=== PATIENT | female | born 1995 | race Caucasian/White ===

== ENCOUNTER 2017-02-23 22:13 | Emergency (ER) | payer BC, OTHER ==
[~2017-02-23 22:13] MED LIST: CEPH-264 PO; HYDR-971 PO; IBUP800T19 PO; PRED50TA PO
--- NOTE | 2017-02-23 22:19 | ED.ADGEN ---
Past History Past Medical History: No Pertinent History Past Surgical History: Smoking: Non-smoker Alcohol Use: None Drug Use: None Adult General Chief Complaint Chief Complaint ".. I had a little episode of coughing really hard... and got this sql server bi developer sharp pain... in Rt. side mid back.. and it still hurt if cough, laugh, or move funny...it been there all day.." HPI HPI Patient is a 22 year old female who presents with above hx and complaints. Pt. has point tenderness mid scapular line T-6. Pain is reproduced on palpation at this point, on anterior to posterior compress and side to side compress of ribs. Pt. denies hx of cardiac, PE, or coagulopathy. Pt. states she normally healthy. No other trauma reported other than the cough. Review of Systems Review of Systems Constitutional: Denies fever or chills [] Eyes: Denies change in visual acuity, redness, or eye pain [] HENT: Denies nasal congestion or sore throat [] Respiratory: Denies cough or shortness of breath [] Cardiovascular: No additional information not addressed in HPI [] Point tenderness of chest wall as per HPI. GI: Denies abdominal pain, nausea, vomiting, bloody stools or diarrhea [] : Denies dysuria or hematuria [] Musculoskeletal: Denies back pain or joint pain []No cording in legs Integument: Denies rash or skin lesions [] Neurologic: Denies headache, focal weakness or sensory changes [] Endocrine: Denies polyuria or polydipsia [] Family History Family History Noncontributory Current Medications Current Medications Current Medications Medications (Trade) Dose Ordered Sig/Uriel Start Time Stop Time Status Last Admin Dose Admin Ketorolac Tromethamine (Toradol) 60 mg 1X ONCE 02/23/17 22:45 02/23/17 22:46 DC 02/23/17 22:45 60 MG See nursing for home meds Allergies Allergies Allergies Coded Allergies Type Severity Reaction Last Updated Verified No Known Drug Allergies 01/31/14 No Physical Exam Physical Exam Constitutional: Well developed, well nourished, no acute distress, non-toxic appearance. [] HENT: Normocephalic, atraumatic, bilateral external ears normal, oropharynx moist, no oral exudates, nose normal. [] Eyes: PERRLA, EOMI, conjunctiva normal, no discharge. [] Neck: Normal range of motion, no tenderness, supple, no stridor. [] Cardiovascular:Heart rate regular rhythm, no murmur [] Lungs & Thorax: Bilateral breath sounds clear to auscultation []except chest wall tenderness as per history of present illness Abdomen: Bowel sounds normal, soft, no tenderness, no masses, no pulsatile masses. [Old surgery scar Skin: Warm, dry, no erythema, no rash. [] Back: No tenderness, no CVA tenderness. [] Extremities: No tenderness, no cyanosis, no clubbing, ROM intact, no edema. [] No cording noted. Scar Rt. arm Neurologic: Alert and oriented X 3, normal motor function, normal sensory function, no focal deficits noted. [] Psychologic: Affect normal, judgement normal, mood normal. [] Current Patient Data Lab Results Laboratory Tests Test 02/23/17 22:58 POC Urine HCG, Qualitative hcg negative (Negative) EKG EKG [] Radiology/Procedures Radiology/Procedures I interpretation chest x-ray shows no acute cardiopulmonary findings. No findings of pneumothorax.[] Course & Med Decision Making Course & Med Decision Making Pertinent Labs and Imaging studies reviewed. (See chart for details). Take Tylenol and ibuprofen as needed for discomfort. Follow-up primary care. Return if any concerns. [] Final Impression Final Impression 1. Cartilage Tear 2. Chest Wall Pain[] Problems: Dragon Disclaimer Dragon Disclaimer This electronic medical record was generated, in whole or in part, using a voice recognition dictation system. DARRICK MCGEE MD Feb 23, 2017 22:19
[2017-02-23 22:25] VITALS: BP 143/89
[2017-02-23] MEDS ORDERED: KETOROLAC 60 MG/2 ML VIAL. IM ONE (22:45)
--- NOTE | 2017-02-24 07:50 | RAD ---
Chest, 2 views, 02/23/2017: History: Cough, congestion, chest pain The heart size and pulmonary vascularity are normal. No pulmonary infiltrates are seen. There is no evidence of pleural fluid. There is mild gaseous distention of bowel loops in the upper abdomen. IMPRESSION: 1. No acute cardiopulmonary abnormality is detected. 2. Gaseous distention of bowel loops in the upper abdomen. If pain persists, a follow-up acute abdomen series may be useful for further evaluation.
== END 2017-02-23 23:32 | disposition home or self-care (01) ==
LOC: ER 22:13
DX: S43.81XA Sprain of other specified parts of right shoulder girdle, initial encounter (principal); R07.89 Other chest pain; X58.XXXA Exposure to other specified factors, initial encounter; Y93.89 Activity, other specified; Y99.8 Other external cause status; Y92.89 Other specified places as the place of occurrence of the external cause
CPT/HCPCS: 71020; 81025; 96372; 99284; J1885

== ENCOUNTER 2018-06-05 18:15 | Emergency (ER) | payer SELFPAY ==
[~2018-06-05] VITALS: Ht 157.5 cm; Wt 100.5 kg
[~2018-06-05 18:15] MED LIST changes: +HYDR-3165 PO; -HYDR-971 PO
[2018-06-05 18:17] VITALS: BP 121/83
[2018-06-05] MEDS ORDERED: AMOX1TAB61 PO (18:41)
--- NOTE | 2018-06-05 18:44 | PHYS DOC ---
Adult General Chief Complaint Chief Complaint sore throat HPI HPI 23 years old female presented emergency department with sore throat, dry cough for 72 hours no fever no chills no urgency no frequency no hematuria no abdominal pain Review of Systems Review of Systems Constitutional: Denies fever or chills [] Eyes: Denies change in visual acuity, redness, or eye pain [] HENT: Denies nasal congestion Respiratory: Denies cough or shortness of breath [] Cardiovascular: No additional information not addressed in HPI [] GI: Denies abdominal pain, nausea, vomiting, bloody stools or diarrhea [] : Denies dysuria or hematuria [] Musculoskeletal: Denies back pain or joint pain [] Integument: Denies rash or skin lesions [] Neurologic: Denies headache, focal weakness or sensory changes [] Endocrine: Denies polyuria or polydipsia [] All other systems were reviewed and found to be within normal limits, except as documented in this note. Allergies Allergies Allergies Coded Allergies Type Severity Reaction Last Updated Verified sulfamethoxazole Allergy Unknown hives 06/05/18 Yes trimethoprim Allergy Unknown hives 06/05/18 Yes Physical Exam Physical Exam Constitutional: Well developed, well nourished, no acute distress, non-toxic appearance. [] HENT: Normocephalic, atraumatic, bilateral external ears normal, oropharynx red , no oral exudates, nose normal. [] Eyes: PERRLA, EOMI, conjunctiva normal, no discharge. [] Neck: Normal range of motion, no tenderness, supple, no stridor. [] Cardiovascular:Heart rate regular rhythm, no murmur [] Lungs & Thorax: Bilateral breath sounds clear to auscultation [] Abdomen: Bowel sounds normal, soft, no tenderness, no masses, no pulsatile masses. [] Skin: Warm, dry, no erythema, no rash. [] Back: No tenderness, no CVA tenderness. [] Extremities: No tenderness, no cyanosis, no clubbing, ROM intact, no edema. [] Neurologic: Alert and oriented X 3, normal motor function, normal sensory function, no focal deficits noted. [] Psychologic: Affect normal, judgement normal, mood normal. [] Current Patient Data Vital Signs Vital Signs Date Time Temp Pulse Resp B/P (MAP) Pulse Ox O2 Delivery O2 Flow Rate FiO2 06/05/18 18:17 98.5 83 16 98 Room Air EKG EKG [] Radiology/Procedures Radiology/Procedures [] Course & Med Decision Making Course & Med Decision Making Pertinent Labs and Imaging studies reviewed. (See chart for details) [] Final Impression Final Impression [] Problems: (1) Pharyngitis Qualifiers: Qualified Codes: J02.0 - Streptococcal pharyngitis Dragon Disclaimer Dragon Disclaimer This electronic medical record was generated, in whole or in part, using a voice recognition dictation system. ISH CASTRO MD Jun 05, 2018 18:44
== END 2018-06-05 18:50 | disposition home or self-care (01) ==
LOC: ER 18:15
DX: J02.0 Streptococcal pharyngitis (principal); B95.0 Streptococcus, group A, as the cause of diseases classified elsewhere; Z88.2 Allergy status to sulfonamides; Z88.1 Allergy status to other antibiotic agents
CPT/HCPCS: 99283

== ENCOUNTER 2019-01-03 11:34 | Emergency (ER) | payer BC ==
[~2019-01-03] VITALS: Ht 157.5 cm; Wt 104.3 kg
[~2019-01-03 11:34] MED LIST changes: +AMOX1TAB61 PO
[2019-01-03 11:40] VITALS: BP 131/94
--- NOTE | 2019-01-03 12:06 | RAD ---
Indication:Right ankle pain for 3 weeks. No known injury TECHNIQUE: 3 views of the right ankle COMPARISON:None FINDINGS/ impression: No acute fracture or dislocation. Ankle mortise is intact. Electronically signed by: Nael Steward DO (01/03/2019 12:03 PM) [facility]
[2019-01-03] MEDS ORDERED: OXAP600T2 PO (12:21)
--- NOTE | 2019-01-03 12:21 | PHYS DOC ---
Past History Past Medical History: Depression Past Surgical History: Smoking: Non-smoker Alcohol Use: Occasionally Drug Use: None Adult General Chief Complaint Chief Complaint: ANKLE PROBLEM HPI HPI Patient is a 23-year-old female presents complaining of right ankle pain, the lower outer part of her ankle. Increased pain with movement. This started approximately 3 weeks ago. No trauma, no swelling, no recent travel. No short ness of breath. No PE risk factors. 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 Patient reports ibuprofen does little to help with the pain.[] Review of Systems Review of Systems Constitutional: Denies fever or chills [] Eyes: Denies change in visual acuity, redness, or eye pain [] HENT: Denies nasal congestion or sore throat [] Respiratory: Denies cough or shortness of breath [] Cardiovascular: No chest pain or palpitations[] GI: Denies abdominal pain, nausea, vomiting, bloody stools or diarrhea [] : Denies dysuria or hematuria [] Musculoskeletal: Denies back pain, see history of present illness[] Integument: Denies rash or skin lesions [] Neurologic: Denies headache, focal weakness or sensory changes [] Endocrine: Denies polyuria or polydipsia [] All other systems were reviewed and found to be within normal limits, except as documented in this note. Allergies Allergies Allergies Coded Allergies Type Severity Reaction Last Updated Verified sulfamethoxazole Allergy Unknown hives 06/05/18 Yes trimethoprim Allergy Unknown hives 06/05/18 Yes Physical Exam Physical Exam Constitutional: Well developed, well nourished, no acute distress, non-toxic appearance. [] HENT: Normocephalic, atraumatic, bilateral external ears normal, oropharynx moist, no oral exudates, nose normal. [] Eyes: PERRLA, EOMI, conjunctiva normal, no discharge. [] Neck: Normal range of motion, no tenderness, supple, no stridor. [] Cardiovascular:Heart rate regular rhythm, no murmur [] Lungs & Thorax: Bilateral breath sounds clear to auscultation [] Abdomen: Not examined[] Skin: Warm, dry, no erythema, no rash. [] Back: No tenderness, no CVA tenderness. [] Extremities: Right ankle has tenderness over the lateral malleolus along with tenderness of along the anterior toe a fibular ligament. There is no laxity. No base of the fifth metatarsal tenderness. Patient is distally neurovascularly intact. Full active range of motion. A joint above and joined below the ankle were evaluated and were normal. The other 3 extremities show: No tenderness, no cyanosis, no clubbing, ROM intact, no edema. [] Neurologic: Alert and oriented X 3, normal motor function, normal sensory function, no focal deficits noted. [] Psychologic: Affect normal, judgement normal, mood normal. [] Current Patient Data Vital Signs Vital Signs Date Time Temp Pulse Resp B/P (MAP) Pulse Ox O2 Delivery O2 Flow Rate FiO2 01/03/19 11:40 98.2 87 20 96 Room Air EKG EKG [] Radiology/Procedures Radiology/Procedures PROCEDURE: ANKLE RIGHT 3V Indication:Right ankle pain for 3 weeks. No known injury TECHNIQUE: 3 views of the right ankle COMPARISON:None FINDINGS/ impression: No acute fracture or dislocation. Ankle mortise is intact. [] Course & Med Decision Making Course & Med Decision Making Pertinent Labs and Imaging studies reviewed. (See chart for details) ED course: Patient arrived, was placed in bed, and tolerated exam well. She was transported to and from radiology with any complications. After the return of the imaging findings, these were discussed with the patient who voiced understanding. An ankle air/stirrup splint was placed. Patient was distally neurovascularly intact after stirrup splint application. All questions were answered. Patient was discharged in improved condition. Medical decision making: There is no evidence of a fracture, dislocation, neurologic, tendonous, ligamentous, nor vascular injury.[] Dragon Disclaimer Dragon Disclaimer This electronic medical record was generated, in whole or in part, using a voice recognition dictation system. Departure Departure: Impression: Primary Impression: Ankle sprain Disposition: HOME, SELF-CARE Condition: IMPROVED Referrals: COOKIE R[facility] (PCP) Follow-up in 2 days Patient Instructions: Ankle Sprain, Acute, with Phase I Rehab-SportsMed Additional Instructions: Follow-up with your regular doctor in 2 days. Wear the splint while awake, and especially during working hours. Return to the ER if worsening pain, weakness, or any other concerns. Scripts Oxaprozin (OXAPROZIN) 600 Mg Tablet 600 MG PO BID for pain, #20 TAB Prov: ZULAY RAMIREZ DO 01/03/19 Problem Qualifiers Primary Impression: Ankle sprain Encounter type: initial encounter Involved ligament of ankle: anterior talofibular ligament Laterality: right Qualified Codes: S93.491A - Sprain of other ligament of right ankle, initial encounter ZULAY RAMIREZ DO Jan 03, 2019 12:21
== END 2019-01-03 12:25 | disposition home or self-care (01) ==
LOC: ER 11:34
DX: S93.401A Sprain of unspecified ligament of right ankle, initial encounter (principal); Z88.1 Allergy status to other antibiotic agents; Z88.2 Allergy status to sulfonamides; X58.XXXA Exposure to other specified factors, initial encounter; Y93.89 Activity, other specified; Y92.89 Other specified places as the place of occurrence of the external cause; Y99.0 Civilian activity done for income or pay
CPT/HCPCS: 29515; 73610; 99284

== ENCOUNTER 2020-04-29 21:20 | Emergency (ER) | payer BC ==
[~2020-04-29] VITALS: Ht 157.5 cm; Wt 108.0 kg
[~2020-04-29 21:20] MED LIST changes: +OXAP600T2 PO
[2020-04-29] MEDS ORDERED: NITROGLYCERIN SUBLINGUAL 0.4 MG BOTTLE OF 25. SL PRN (21:45)
--- NOTE | 2020-04-29 21:46 | EKG ---
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
--- NOTE | 2020-04-29 21:58 | PHYS DOC ---
Past History Past Medical History: Depression (BULMARO JENSEN APRN) Past Surgical History: (BULMARO JENSEN APRN) Smoking: Non-smoker Alcohol Use: Occasionally Drug Use: None (BULMARO JENSEN APRN) Adult General Chief Complaint Chief Complaint: CHEST PAIN HPI HPI Patient is a 25-year-old female patient with history of depression presenting to the ED today complaining of 6 out of 10 substernal chest pain that began 3 days ago. Patient describes the pain as sharp worse on eating. Denies any cough, congestion, shortness of breath. Denies any chance she is , she states she has a Mirena. Denies any abdominal pain, nausea vomiting. She states she has tried Tums with no relief. (BULMARO JENSEN APRN) Review of Systems Review of Systems Constitutional: Denies fever or chills [] Eyes: Denies change in visual acuity, redness, or eye pain [] HENT: Denies nasal congestion or sore throat [] Respiratory: Denies cough or shortness of breath [] Cardiovascular: Reports chest pain GI: Denies abdominal pain, nausea, vomiting, bloody stools or diarrhea [] : Denies dysuria or hematuria [] Musculoskeletal: Denies back pain or joint pain [] Integument: Denies rash or skin lesions [] Neurologic: Denies headache, focal weakness or sensory changes [] All other systems were reviewed and found to be within normal limits, except as documented in this note. (BULMARO JENSEN APRN) Current Medications Current Medications Current Medications Medications (Trade) Dose Ordered Sig/Uriel Start Time Stop Time Status Last Admin Dose Admin Aspirin (Cal Aspirin) 325 mg 1X ONCE 04/29/20 22:15 04/29/20 22:16 04/29/20 21:51 325 MG Multi-Ingredient Mouthwash/Gargle (Gi Cocktail) 20 ml 1X ONCE 04/29/20 22:15 04/29/20 22:16 04/29/20 21:51 20 ML Nitroglycerin (Nitrostat) 0.4 mg PRN Q5MIN PRN 04/29/20 21:45 04/30/20 21:44 04/29/20 21:51 0.4 MG (BULMARO JENSEN APRN) Allergies Allergies Allergies Coded Allergies Type Severity Reaction Last Updated Verified sulfamethoxazole Allergy Unknown hives 06/05/18 Yes trimethoprim Allergy Unknown hives 06/05/18 Yes (BULMARO JENSEN APRN) Physical Exam Physical Exam Constitutional: Well developed, well nourished, no acute distress, non-toxic appearance. [] HENT: Normocephalic, atraumatic, bilateral external ears normal, oropharynx moist, no oral exudates, nose normal. [] Eyes: PERRLA, EOMI, conjunctiva normal, no discharge. [] Neck: Normal range of motion, no tenderness, supple, no stridor. [] Cardiovascular:Heart rate regular rhythm, no murmur [] Lungs & Thorax: Bilateral breath sounds clear to auscultation [] Abdomen: Bowel sounds normal, soft, no tenderness, no masses, no pulsatile masses. [] Skin: Warm, dry, no erythema, no rash. [] Back: No tenderness, no CVA tenderness. [] Extremities: No tenderness, no cyanosis, no clubbing, ROM intact, no edema. [] Neurologic: Alert and oriented X 3, normal motor function, normal sensory function, no focal deficits noted. [] Psychologic: Affect normal, judgement normal, mood normal. [] (BULMARO JENSEN APRN) Current Patient Data Vital Signs Vital Signs Date Time Temp Pulse Resp B/P (MAP) Pulse Ox O2 Delivery O2 Flow Rate FiO2 04/29/20 21:51 87 178/86 04/29/20 21:29 98.1 15 98 Room Air (BULMARO JENSEN APRN) EKG EKG [address] Sousa sinus rhythm HR 100 no STEMI[] (BULMARO JENSEN APRN) Radiology/Procedures Radiology/Procedures [] (BULMARO JENSEN APRN) Impressions: Exam: Acute abdominal series INDICATION: Chest pain, heartburn TECHNIQUE: Frontal view of the chest with upright and supine views of the abdomen Comparisons: None FINDINGS: The cardiomediastinal silhouette and pulmonary vessels are within normal limits. The lung and pleural spaces are clear. Air and stool are noted throughout the colon to level the rectum nonobstructive bowel gas pattern. No suspicious masses or calcifications. Visualized osseous structures are unremarkable. IMPRESSION: 1. No acute cardiopulmonary process. 2. Nonobstructive bowel gas pattern. Electronically signed by: Evi Calderon MD (04/29/2020 10:27 PM) [facility] DICTATED AND SIGNED BY: EVI CALDERON MD DATE: 04/29/202226 CC: PRICE SOUSA DO; BULMARO JENSEN APRN; [facility] REN ~ (PRICE SOUSA DO) Heart Score HEART Score for Chest Pain: HEART Score for Chest Pain Response (Comments) Value History Slighlty/Non-Suspicious 0 ECG Normal 0 Age < 45 0 Risk Factors No Risk Factors 0 Troponin < Normal Limit 0 Total 0 Risk Factors: Risk Factors: DM, Current or recent (<one month) smoker, HTN, HLP, family history of CAD, obesity. Risk Scores: Risk Factors: DM, Current or recent (<one month) smoker, HTN, HLP, family history of CAD, obesity. (BULMARO JENSEN APRN) Course & Med Decision Making Course & Med Decision Making Pertinent Labs and Imaging studies reviewed. (See chart for details) This is a 25-year-old female patient presenting to the ED today with complaints of chest pain that is worse when she eats, symptoms for 3 days. Patient's work-up is pending including labs and x-rays. [address] Sousa (BULMARO JENSEN APRN) Course & Med Decision Making Patient's labs are unremarkable except for magnesium 1.6. Troponin is negative. Her EKG is negative for acute findings. Chest x-ray is negative for acute findings. D-dimer is negative. This does not appear to be cardiopulmonary in nature. She is stable for discharge at this time. (PRICE SOUSA DO) Dragon Disclaimer Dragon Disclaimer This electronic medical record was generated, in whole or in part, using a voice recognition dictation system. (BULMARO JENSEN APRN) PERC Rule for PE PERC Rule for PE Response (Comments) Value Age > 50: No 0 HR > 100: No 0 Sa02 on room air <95%: No 0 Unilateral leg swelling: No 0 Hemoptysis: No 0 Recent surgery or trauma: No 0 Prior PE or DVT: No 0 Hormone use: Yes 1 Total 1 Attending Co-Sign The patient was seen and interviewed as well as examined at the bedside. The chart was reviewed. The case was discussed. Agree with the plan of care. (PRICE SOUSA DO) Departure Departure: Impression: Primary Impression: Chest pain Disposition: 01 DC HOME SELF CARE/HOMELESS Condition: STABLE Referrals: [facility] (PCP) Patient Instructions: Chest Pain (Nonspecific), [id number] BULMARO JENSEN APRN Apr 29, 2020 21:58 PRICE SOUSA DO Apr 29, 2020 22:38
[2020-04-29] MEDS ORDERED: ASPIRIN 325 MG TABLET PO ONE (22:15)
[2020-04-29] MEDS ORDERED: LIDO:MAALOX 1:1 20 ML SINGLE DOSE. PO ONE (22:15)
--- NOTE | 2020-04-29 22:30 | RAD ---
Exam: Acute abdominal series INDICATION: Chest pain, heartburn TECHNIQUE: Frontal view of the chest with upright and supine views of the abdomen Comparisons: None FINDINGS: The cardiomediastinal silhouette and pulmonary vessels are within normal limits. The lung and pleural spaces are clear. Air and stool are noted throughout the colon to level the rectum nonobstructive bowel gas pattern. No suspicious masses or calcifications. Visualized osseous structures are unremarkable. IMPRESSION: 1. No acute cardiopulmonary process. 2. Nonobstructive bowel gas pattern. Electronically signed by: Evi Diaz MD (04/29/2020 10:27 PM) JAN
[2020-04-29 22:38] LABS: BARBITURATES NEG (NEG); BENZODIAZEPINES NEG (NEG); CANNABINOIDS NEG (NEG); COCAINE NEG (NEG); METHADONE NEG (NEG); OPIATES NEG (NEG); PHENCYCLIDINE NEG (NEG)
[2020-04-29 22:39] LABS: AMPHETAMINE/METHAMPHETAMINE NEG (NEG)
[2020-04-29 22:42] LABS: CALCIUM 8.4 mg/dL (8.5-10.1); CREATININE 0.9 mg/dL (0.6-1.0); GFR 76.3; POTASSIUM 3.6 mmol/L (3.5-5.1)
[2020-04-29 22:58] LABS: ALBUMIN 2.9 g/dL (3.4-5.0); ALBUMIN/GLOBULIN RATIO 0.9 (1.0-1.7); MAGNESIUM 1.6 mg/dL (1.8-2.4); TOTAL BILIRUBIN 0.4 mg/dL (0.2-1.0); TOTAL PROTEIN 6.3 g/dL (6.4-8.2)
[2020-04-29 23:17] LABS: BASO # 0.1 x10^3/uL (0.0-0.2); BASO % 1 % (0-3); EOS # 0.3 x10^3/uL (0.0-0.7); EOS % 3 % (0-3); HEMATOCRIT 46.4 % (36.0-47.0); HEMOGLOBIN 15.4 g/dL (12.0-15.5); LYMPH # 2.9 x10^3/uL (1.0-4.8); LYMPH % 28 % (24-48); MEAN CORPUSCULAR HEMOGLOBIN 28 pg (25-35); MEAN CORPUSCULAR HGB CONC 33 g/dL (31-37); MEAN CORPUSCULAR VOLUME 85 fL (79-100); MONO # 0.8 x10^3/uL (0.0-1.1); MONO % 7 % (0-9); NEUT # 6.6 x10^3uL (1.8-7.7); NEUT % 62 % (31-73); PLATELET COUNT 266 x10^3/uL (140-400); RED BLOOD COUNT 5.45 x10^6/uL (3.50-5.40); RED CELL DISTRIBUTION WIDTH 13.5 % (11.5-14.5); WHITE BLOOD COUNT 10.7 x10^3/uL (4.0-11.0)
[2020-04-29 23:29] LABS: BACTERIA,URINE FEW /HPF (0-FEW); BILIRUBIN,URINE NEG (NEG); CLARITY,URINE HAZY; COLOR,URINE YELLOW; GLUCOSE,URINE NEG (NEG); NITRITE,URINE NEG (NEG); RBC,URINE 0 /HPF (0-2); SQUAMOUS EPITHELIAL CELL,UR MOD /LPF; UROBILINOGEN,URINE 0.2 mg/dL (0.2 mg/dL); WBC,URINE 0 /HPF (0-4)
[2020-04-30] MEDS ORDERED: FAMOTIDINE 20 MG/2 ML VIAL IVP ONE (00:15)
[2020-04-30] MEDS ORDERED: PANTOPRAZOLE IV 40 MG VIAL. IVP ONE (00:15)
[2020-04-30 00:40] VITALS: BP 128/88
== END 2020-04-30 00:40 | disposition home or self-care (01) ==
LOC: ER 21:20
DX: R07.2 Precordial pain (principal); F32.9 Major depressive disorder, single episode, unspecified; Z88.2 Allergy status to sulfonamides; Z88.1 Allergy status to other antibiotic agents
CPT/HCPCS: 36415; 74022; 80053; 80307; 81001; 82553; 83690; 83735; 83880; 84443; 84484; 85025; 85379; 93005; 96374; 96375; 99285-25

== ENCOUNTER 2021-08-31 08:25 | Emergency (ER) | payer BC ==
[~2021-08-31] VITALS: Ht 154.9 cm; Wt 100.0 kg
--- NOTE | 2021-08-31 08:34 | PHYS DOC ---
Past History Past Medical History: Depression Past Surgical History: Smoking: Non-smoker Alcohol Use: Occasionally Drug Use: None General Adult HPI: HPI: Patient is a 26 year old female who is who states she is possibly 5 weeks with unknown LMP presents with the chief complaint of vaginal bleeding. Patient had Mirana removed on Jul 18. Jul 23 patient took home test due to symptoms consistent with previous and tested positive x 2 home tests. Patient states 3 days ago had small amount of dark vaginal bleeding. The following day patient had bright vaginal bleeding. Patient called OB and was advised to follow up if she starts to fill a pad with blood. This AM patient awoke with increased blood in pad. Just prior to my exam patient attempted to urinate and had some bright red blood but not passing clots. Patient without pelvic pain and no complaint of dizziness or feeling light headed. Patients vital signs stable. Review of Systems: Review of Systems: Constitutional: Denies fever or chills Eyes: Denies change in visual acuity HENT: Denies nasal congestion or sore throat Respiratory: Denies cough or shortness of breath Cardiovascular: Denies chest pain or edema GI: Denies abdominal pain, nausea, vomiting, bloody stools or diarrhea : Denies dysuria positive positive vaginal bleeding Musculoskeletal: Denies back pain or joint pain Integument: Denies rash Neurologic: Denies headache, focal weakness or sensory changes Endocrine: Denies polyuria or polydipsia Lymphatic: Denies swollen glands Psychiatric: Denies depression or anxiety Allergies: Allergies: Allergies Coded Allergies Type Severity Reaction Last Updated Verified sulfamethoxazole Allergy Unknown hives 06/05/18 Yes trimethoprim Allergy Unknown hives 06/05/18 Yes Physical Exam: PE: Constitutional: Well developed, well nourished, no acute distress, non-toxic appearance. [] HENT: Normocephalic, atraumatic, bilateral external ears normal, oropharynx moist, no oral exudates, nose normal. [] Eyes: PERRLA, EOMI, conjunctiva normal, no discharge. [] Neck: Normal range of motion, no tenderness, supple, no stridor. [] Cardiovascular:Heart rate regular rhythm, no murmur [] Lungs & Thorax: Bilateral breath sounds clear to auscultation [] Abdomen: Bowel sounds normal, soft, no tenderness, no masses, no pulsatile masses. [] Skin: Warm, dry, no erythema, no rash. [] Back: No tenderness, no CVA tenderness. [] Extremities: No tenderness, no cyanosis, no clubbing, ROM intact, no edema. [] Neurologic: Alert and oriented X 3, normal motor function, normal sensory function, no focal deficits noted. [] Psychologic: Affect normal, judgement normal, mood normal. [] EKG: EKG: [] Radiology/Procedures: Radiology/Procedures: [] Heart Score: C/O Chest Pain: N/A Risk Factors: Risk Factors: DM, Current or recent (<one month) smoker, HTN, HLP, family history of CAD, obesity. Risk Scores: Score 0 - 3: 2.5% MACE over next 6 weeks - Discharge Home Score 4 - 6: 20.3% MACE over next 6 weeks - Admit for Clinical Observation Score 7 - 10: 72.7% MACE over next 6 weeks - Early Invasive Strategies Course & Med Decision Making: Course & Med Decision Making Pertinent Labs and Imaging studies reviewed. (See chart for details) []Discussed plan with patient. Check serum HCG, UA, CBC, CMP, had blood type. Advised being 4-5 weeks US would likely not be amble to confirm . Patient without pain so less likely ectopic and more likely vaginal bleeding in or threatened AB. WIll not be ordered an EMERGENT ER US. Patient has scheduled appointment with OB-c t tech. Patient told blood type - Rh Positive. Advised of HCg levels.---advised to follow up with Obgyn and have repeat HCG in 48-72 hrs Kam Disclaimer: Kam Disclaimer: This electronic medical record was generated, in whole or in part, using a voice recognition dictation system. Departure Departure: Impression: Primary Impression: Threatened in first trimester Additional Impression: Vaginal bleeding before 22 weeks gestation Disposition: HOME / SELF CARE / HOMELESS Condition: STABLE Referrals: [facility] (PCP) Patient Instructions: Threatened Miscarriage, Vaginal Bleeding During , First Trimester KATTY GU DO Aug 31, 2021 08:34
[2021-08-31 08:40] VITALS: BP 129/82
[2021-08-31 09:28] LABS: BASO % 1 % (0-3); EOS # 0.3 x10^3/uL (0.0-0.7); EOS % 5 % (0-3); HEMATOCRIT 39.6 % (36.0-47.0); HEMOGLOBIN 13.5 g/dL (12.0-15.5); LYMPH # 1.8 x10^3/uL (1.0-4.8); LYMPH % 28 % (24-48); MEAN CORPUSCULAR HEMOGLOBIN 29 pg (25-35); MEAN CORPUSCULAR HGB CONC 34 g/dL (31-37); MEAN CORPUSCULAR VOLUME 86 fL (79-100); MONO # 0.4 x10^3/uL (0.0-1.1); MONO % 6 % (0-9); NEUT % 61 % (31-73); PLATELET COUNT 304 x10^3/uL (140-400); RED BLOOD COUNT 4.62 x10^6/uL (3.50-5.40); RED CELL DISTRIBUTION WIDTH 13.7 % (11.5-14.5); WHITE BLOOD COUNT 6.6 x10^3/uL (4.0-11.0)
[2021-08-31 09:33] LABS: CALCIUM 8.8 mg/dL (8.5-10.1); CREATININE 0.7 mg/dL (0.6-1.0); GFR 101.1; POTASSIUM 3.9 mmol/L (3.5-5.1)
[2021-08-31 09:39] LABS: ALBUMIN 3.4 g/dL (3.4-5.0); ALBUMIN/GLOBULIN RATIO 0.8 (1.0-1.7); TOTAL BILIRUBIN 0.3 mg/dL (0.2-1.0); TOTAL PROTEIN 7.5 g/dL (6.4-8.2)
[2021-08-31 10:40] LABS: BACTERIA,URINE 0 /HPF (0-FEW); CLARITY,URINE CLEAR; COLOR,URINE STRAW; GLUCOSE,URINE NEG (NEG); NITRITE,URINE NEG (NEG); RBC,URINE OCC /HPF (0-2); SQUAMOUS EPITHELIAL CELL,UR FEW /LPF; UROBILINOGEN,URINE 0.2 mg/dL (0.2 mg/dL); WBC,URINE OCC /HPF (0-4)
== END 2021-08-31 11:00 | disposition home or self-care (01) ==
LOC: ER 08:30
DX: O20.0 Threatened abortion (principal); Z3A.01 Less than 8 weeks gestation of pregnancy; Z98.890 Other specified postprocedural states; Z88.2 Allergy status to sulfonamides; Z88.1 Allergy status to other antibiotic agents
CPT/HCPCS: 36415; 80053; 81001; 81025; 84702; 85025; 86900; 86901; 99283